=== PATIENT | female | born 1985 | race American Indian/Alaskan Native ===

== ENCOUNTER 2017-02-07 13:37 | Emergency (ER) | payer OTHER ==
[2017-02-07 13:45] VITALS: BP 131/86
--- NOTE | 2017-02-07 18:21 | Emergency Department Report ---
Upper Extremity - HPI Chief Complaint: Extremity Injury, Upper Stated Complaint: ARM PAIN AND NUMBNESS Time Seen by Provider: 02/07/17 16:43 Upper Extremity: Left Arm (pain) Occurred When: >5 Days (patient here reports that she has left arm pain and left leg pain without any trauma. She said that she was seen by her primary care and he sent her here for MRI. She said pain comes and goes and is been going on for a while. Denies any chest pain. She said she was having in a little bit and numbness in her left hand but she does not have that now. Last menstrual period was 01/17/2017. Denies any fever or chills. Denies any redness to her extremities. Denies any chest pain, shortness of breath. Denies any headache or neck pain. She said her only medical history psoriasis. No [id number] medication taken for pain.) ED Review of Systems ROS: Stated complaint: ARM PAIN AND NUMBNESS Other details as noted in HPI Comment: All other systems reviewed and negative Constitutional: no symptoms reported ENT: denies: ear pain, throat pain, dental pain, congestion Respiratory: no symptoms reported Cardiovascular: denies: chest pain, palpitations, dyspnea on exertion, edema, syncope, paroxysmal nocturnal dyspnea Endocrine: no symptoms reported Musculoskeletal: arthralgia. denies: back pain, joint swelling, myalgia Skin: denies: rash Neurological: numbness. denies: headache, weakness, paresthesias, confusion, abnormal gait, vertigo ED Past Medical Hx - Past Medical History Previous Medical History?: No - Surgical History Past Surgical History?: No - Family History Family history: no significant - Social History Smoking Status: Never Smoker Substance Use Type: None Upper Extremity Exam - Exam General: Vital signs noted. No distress. Alert and acting appropriately. This is a 31-year-old female well-nourished well-developed in no acute distress Head and Torso: No HEENT Abnormality, No Neck Tenderness, No Chest/Lungs Abnormality, No Abdominal Tenderness, No Back Tenderness Shoulder Exam: Yes Normal Range of Motion in Shoulder, No Shoulder Tenderness, No Clavicle Tenderness, No Shoulder Deformity, No AC Joint Tenderness Arm Exam: No Arm/Humerus Tenderness, No Arm Deformity Elbow: Yes Normal Range of Motion in Elbow, No Elbow Tenderness, No Elbow Deformity Forearm: No Forearm Tenderness, No Forearm Deformity, No Pain with Pronation, No Pain with Supination Wrist: Yes Normal ROM in Wrist, No Wrist Tenderness, No Wrist Deformity, No Snuffbox Tenderness, No Pain with Axial Thumb Compression Hand: Yes Normal ROM in Digit(s), No Hand Tenderness, No Hand Deformity, No Digit Tenderness, No Digit(s) Deformity, No Tendon Dysfunction CMS Exam: Yes Normal Distal Pulses, Yes Normal Capillary Refill, Yes Normal Distal Sensation, No Broken Skin ED Course Vital Signs 02/07/17 13:43 Temperature 97.3 F L Pulse Rate 68 Respiratory 18 Rate Blood Pressure 131/86 O2 Sat by Pulse 100 Oximetry - Reevaluation(s) Reevaluation #1: 02/07/17 18:21 Patient is stable throughout ED course. ED Medical Decision Making - Medical Decision Making ED course: Patient here reported that she's been having left arm pain and numbness with left leg numbness and pain for a while and she's been seen by her primary care doctor and he referred her to emergency room for MRI. Physical findings with normal neurological status and no neurovascular abnormality to extremities. Patient with normal exam. I discussed the patient that she will need to follow-up with a neurologist regarding in episodic numbness and tingling to left arm and leg. She is able to ambulate without any problems. Her neck exam is normal. Patient is upset because she says she has been waiting in and her primary care doctor could've told her that she needs to go to neurologist for come into the emergency room. I discussed the patient that I 'll refer her to neurologist. She did not want anything for pain. Patient able to move all her extremities, no signs of infection and she is able to ambulate without any difficulties. Discharge home in stable condition. Critical care attestation.: If time is entered above; I have spent that time in minutes in the direct care of this critically ill patient, excluding procedure time. ED Disposition Clinical Impression: Arthralgia of multiple sites Disposition: - TO HOME OR SELFCARE Is pt being admited?: No Does the pt Need Aspirin: No Condition: Stable Instructions: Arthralgia (ED) Additional Instructions: Please follow up with neurologist as instructed. Please return back to primary care physician. Referrals: RODRICK KATZ MD [Primary Care Provider] - 2-3 Days VONNIE PETERS MD [Staff Physician] - 2-3 Days Forms: Accompanied Note, Work/School Release Form(ED)
== END 2017-02-07 18:36 | disposition home or self-care (01) ==
LOC: ED 13:37
DX: M79.602 Pain in left arm (principal); M79.605 Pain in left leg
CPT/HCPCS: 99282